=== PATIENT | male | born 1965 | race Caucasian/White ===

== ENCOUNTER 2017-05-10 18:27 | Emergency (ER) | payer SELFPAY ==
--- NOTE | 2017-05-10 18:42 | ED Physician Chart ---
Chief Complaint/HPI - Patient Information Date Seen:: 05/10/17 Time Seen:: 18:40 Chief Complaint:: LEFT CHEST WALL PAIN History of Present Illness:: THIS IS A 52 YO MALE WHO STATES THAT HE HAD A FALL ABOUT A MONTH AGO AND LANDED ON HIS LEFT CHEST WALL. SINCE THEN HE HAS HAD INTERMITTENT PAIN IN THE LEFT CHEST WALL. HE STATES THAT THE WALL WAS CONCRETE THAT HE LANDED ON. HE DENIES LOSS OF CONSCIOUSNESS. Allergies:: Allergies Allergy/AdvReac Type Severity Reaction Status Date / Time Penicillins Allergy Verified 05/10/17 18:34 Historian:: Patient Review:: Nurse's Note Reviewed Review of Systems - Review of Systems General/Constitutional: No fever, No chills, No weight loss, No weakness, No diaphoresis, No edema, No loss of appetite Skin: No skin lesions, No rash, No bruising Head: No headache, No light-headedness Eyes: No loss of vision, No pain, No diplopia ENT: No earache, No nasal drainage, No sore throat, No tinnitus Neck: No neck pain, No swelling, No thyromegaly, No stiffness, No mass noted Cardio Vascular: Chest pain, No palpitations, No PND, No orthopnea, No edema Pulmonary: No SOB, No cough, No sputum, No wheezing GI: No nausea, No vomiting, No diarrhea, No pain, No melena, No hematochezia, No constipation, No hematemesis G/U: No dysuria, No frequency, No hematuria Musculoskeletal: No bone or joint pain, No back pain, No muscle pain Endocrine: No polyuria, No polydipsia Psychiatric: No prior psych history, No depression, No anxiety, No suicidal ideation Hematopoietic: No bruising, No lymphadenopathy Allergic/Immuno: No urticaria, No angioedema Neurological: No syncope, No focal symptoms, No weakness, No paresthesia, No headache, No seizure, No dizziness, No confusion, No vertigo Past Medical History - Past Medical History Obtainable: Yes Past Medical History: No significant medical hx Family History: None Social History: Non Smoker, No Alcohol, No Drug Use Surgical History: other (TONSILS REMOVED) Family Medical History - Family Member Mother History Unknown: Yes Physical Exam - Physical Examination General/Constitutional: Awake, Well-developed, well-nourished, Alert, No distress, GCS 15, Non-toxic appearing, Ambulatory Head: Atraumatic Eyes: Lids, conjuctiva normal, PERRL, EOMI Skin: Nl inspection, No rash, No skin lesions, No ecchymosis, Well hydrated, No lymphadenopathy ENMT: External ears, nose nl, Nasal exam nl, Lips, teeth, gums nl Neck: Nontender, Full ROM w/o pain, No JVD, No nuchal rigidity, No bruit, No mass, No stridor Respiratory: Nl effort/Exclusion, Clear to Auscultation, No Wheeze/Rhonchi/Rales Other Respiratory comments:: LEFT CHEST WALL TENDERNESS OF THE LEFT MID AXILLARY LINE. Cardio Vascular: RRR, No murmur, gallop, rubs, NL S1 S2 GI: No tenderness/rebounding/guarding, No organomegaly, No hernia, Normal BS's, Nondistended, No mass/bruits, No McBurney tenderness : No CVA tenderness Extremities: No tenderness or effusion, Full ROM, normal strength in all extremities, No edema, Normal digits & nails Neuro/Psych: Alert/oriented, DTR's symmetric, Normal sensory exam, Normal motor strength, Judgement/insight normal, Mood normal, Normal gait, No focal deficits Misc: normal gait, Normal back, No paraspinal tenderness Labs/Radiology/EKG Results - Radiology Results Results: CT SCAN OF THE CHEST = LEFT 4TH,5TH,6TH RIB FRACTURES Assessment - Assessment General Assessment: FRACTURES OF THE LEFT CHEST WALL ED Septic Shock - . Is Septic Shock (SBP<90, OR Lactate>4 mmol\L) present?: No Reassessment (Disposition) - Reassessment Reassessment Condition:: Improved - Diagnosis Diagnosis:: FRACTURE OF THE LEFT 4TH ,5TH, 6TH RIBS. - Aftercare/Follow up Instructions Aftercare/Follow-Up Instructions:: Counseled pt regarding lab results/diagnosis & need follow up, Refer to Discharge Instructions, Counseled pt & family regarding lab results/diagnosis & need follow up - Patient Disposition Discharge/Transfer:: Home Condition at Disposition:: Unchanged ED Discharge Plan - Patient Disposition Admit/Discharge/Transfer: PT DISCHARGED HOME
--- NOTE | 2017-05-11 07:52 | Diagnostic Imaging Report ---
CT scan of the chest without intravenous contrast HISTORY: Pain, trauma Total DLP equals 286 CTDI equals 7.1 Axial sections were obtained from a level above the clavicles down to level below the diaphragm. The heart size is normal. No abnormal mediastinal masses. Hilar regions are unremarkable. Evaluation of vascular structures is limited due to the absence of intravenous contrast. No acute focal pulmonary parenchymal processes. No pleural fluid. Healing fractures noted about the left fourth, fifth, sixth ribs. Degenerative changes seen within the spine. IMPRESSION: 1. No definite acute abnormalities 2. Healing left rib fractures
== END 2017-05-10 19:41 | disposition home or self-care (01) ==
LOC: ER 18:27
DX: S22.42XA Multiple fractures of ribs, left side, initial encounter for closed fracture (principal); Z88.0 Allergy status to penicillin; W19.XXXA Unspecified fall, initial encounter; Y93.89 Activity, other specified; Y92.89 Other specified places as the place of occurrence of the external cause; Y99.8 Other external cause status
CPT/HCPCS: 71250-TC; Z7502